=== PATIENT | male | born 1975 | race Hispanic/Latino ===

== ENCOUNTER 2019-04-17 19:04 | Emergency (ER) | payer OTHER ==
[2019-04-17] MEDS ORDERED: ONDANSETRON ODT 4 MG TAB ONE (19:43)
== END 2019-04-17 19:57 | disposition home or self-care (01) ==
LOC: EDH 19:04
DX: N30.00 Acute cystitis without hematuria (principal); R21 Rash and other nonspecific skin eruption; F41.9 Anxiety disorder, unspecified; Z79.899 Other long term (current) drug therapy